=== PATIENT | male | born 1985 | race Caucasian/White ===

== ENCOUNTER 2017-01-23 01:43 | Emergency (ER) | payer MEDICAID ==
[2017-01-23 01:53] VITALS: BP 144/90
[2017-01-23] MEDS ORDERED: KETOROLAC TROMETHAMINE 60 MG/2 ML VIAL IM ONE (02:01)
--- NOTE | 2017-01-23 02:17 | ERNOTE ---
Back Pain ER HPI Presenting Symptoms: injury/pain to back Time Seen by Provider: 01/23/17 01:56 Source: patient Exam Limitations: no limitations Immunizations: IMMUNIZATION HX Immunizations Up to Date Yes Allergies/Adverse Reactions: Allergies No Known Allergies Allergy (Unverified 01/23/17 01:53) Home Medications: HOME MEDICATIONS NK [No Home Medication] 01/23/17 [Last Taken Unknown] Narrative: Pt states that he slipped off a concrete guard and landed on his back tonight, now has diffuse low to mid back pain. Timing: Reports: constant Quality/Severity: Reports: moderate, dullness Location of pain: Reports: mid back, lower back Activities at Onset: Reports: activity Recent Injury?: Reports: yes Possible Precipitating Factor: Reports: fall/near fall Associated Symptoms: Denies: numbess/weakness in legs Review of Systems - Review of Systems Constitutional: Present: no symptoms reported EYE: Present: no symptoms reported ENT: Present: no symptoms reported Respiratory: Present: no symptoms reported Cardiology: Present: no symptoms reported Gastrointestinal/Abdominal: Present: no symptoms reported Genitourinary: Present: no symptoms reported Musculoskeletal: Present: See HPI Skin: Present: other - abrasions Neurological: Present: no symptoms reported Endocrine: Present: no symptoms reported Hematologic/Lymphatic: Present: no symptoms reported Psych: Present: no symptoms reported - Patient's Past Medical History Patient History - Medical: Seizures Patient History - Cardiac/Respiratory: No pertinent hx Patient History - Cancer: No Hx of Cancer Patient History - Other: None - Social History Living Situations: home Psych History: No pertinent hx Smoking Status: Current every day smoker Patient requests Smoking Cessation Consult: No Initiate information on Smoking Cessation: No Alcohol Use: none Drug Use: none - Immunizations Immunizations Up to Date: Yes Physical Exam - Physical Exam General Appearance: Present: wd/wn, alert, anxious - continually moving Head Exam: Present: no tenderness w palpation. Absent: Zamora's Sign, raccoon eyes Eye Exam: Normal inspection: bilateral, PERRL: bilateral Ears, Nose, Throat: Present: other - abrasion on chin, good Neck: Present: normal inspection, supple Respiratory: Present: no respiratory distress, no accessory muscle use Back Exam: Present: normal range of motion, no vertebral tenderness, other - left paraspinal muscular tenderness from mid lumbar up to lower thoracic Extremity Exam: Present: normal range of motion Neurological Exam: Present: alert, oriented Skin Exam: Present: normal color, warm/dry ED Progress - Vital Signs Vital Signs: Vital Signs 01/23/17 01:49 Temperature 36.8 C Pulse Rate 112 H Respiratory 20 Rate Blood Pressure 144/90 O2 Sat by Pulse 96 Oximetry - Progress/Reassessment Chief Complaint: Back Pain Progress Note-Subjective: 01/23/17 02:12 While patient was waiting for ordered toradol the patient got up and walked out. I asked what was going on and he said "I'm all good doc, I don't want to wait anymore". Departure Clinical Impression: Low back pain Qualifiers: Chronicity: acute Back pain laterality: left Sciatica presence: without sciatica Qualified Code(s): M54.5 - Low back pain - Departure Disposition: Against medical advice Condition: Good
[2017-01-25] MEDS ORDERED: clonazePAM 0.5 MG TABLET ONE (14:09)
== END 2017-01-23 02:10 | disposition left against medical advice (07) ==
LOC: ER 01:43
DX: M54.5 Low back pain (principal); F17.200 Nicotine dependence, unspecified, uncomplicated; W13.8XXA Fall from, out of or through other building or structure, initial encounter; Z53.29 Procedure and treatment not carried out because of patient's decision for other reasons

== ENCOUNTER 2017-01-25 11:26 | Emergency (ER) | payer MEDICAID ==
[2017-01-25 12:18] LABS: Hematocrit 39.8 % (42.0-52.0); Hemoglobin 14.2 gm/dL (13.5-18.0); Mean Cell Volume 91.1 fl (78-100); Mean Corpuscular Hemoglobin 32.5 pg (27-31); Mean Corpuscular Hgb Conc 35.7 g/dl (32-36); Mean Platelet Volume 11.3 fl (6.0-9.5); Neutrophil # 2.8 K/mm3 (1.3-6.0); Platelet Count 181 K/mm3 (150-450); Red Blood Count 4.37 M/mm3 (4.7-6.0); Red Cell Distribution Width 13.2 % (11.5-14.0); White Blood Count 4.9 K/mm3 (4.0-10.5)
[2017-01-25 12:41] LABS: ALT 58 U/L (19-67); AST 58 U/L (0-48); Albumin * 3.5 gm/dl (3.4-5.0); Alkaline Phosphatase * 52 U/L (50-170); Anion Gap 12.9 mmol/L (6.8-13.8); BUN/Creatinine Ratio 16.7 (9.0-21.6); Blood Urea Nitrogen 14 mg/dL (6-23); Ca. Corrected For Albumin 8.5 mg/dL (8.4-10.2); Calcium * 8.4 mg/dL (7.9-10.9); Carbon Dioxide 27.7 mmol/L (24-32.6); Chloride 103 mmol/L (97-106); Glucose * 119 mg/dL (70-110); Magnesium 1.6 mg/dL (1.2-2.8); Potassium 3.6 mmol/L (3.4-4.6); Salicylate Less than 2.8 mg/dL (2.8-20.0); Sodium 140 mmol/L (132-142); TSH * 0.297 uIU/mL (0.358-3.74); Total Protein 6.6 gm/dL (6.2-8.2)
--- NOTE | 2017-01-25 13:20 | ERNOTE ---
Psychological HPI - General Chief Complaint: Psychiatric Problem Source: Reports: patient Exam Limitations: Reports: no limitations - Immun/Allergies/Home Medications Allergies/Adverse Reactions: Allergies No Known Allergies Allergy (Unverified 01/23/17 01:53) Home Medications: HOME MEDICATIONS Clonazepam 01/25/17 [Last Taken Unknown] Wellbutrin 01/25/17 [Last Taken Unknown] - History of Present Illness Narrative: Patient was discharged from the psychiatric department at [facility] in [place] several weeks ago, however he was not discharged with any of his psychiatric medications. Patient has started to notice escalating depression and suicidal ideations are getting worse. Patient states that they are at least moderate to severe at this juncture and he definitely feels suicidal. He denies having any significant plan at this point but is fearful for his well- being. Time Seen by Provider: 01/25/17 11:48 Arrived by: Reports: private car Onset/duration: Reports: gradual onset Intent: Reports: prior thoughts of suicide Associated Symptoms: Reports: depressed, frustrated, suicidal thoughts Prior Treament: Reports: recently seen, treated by physician, recently hospitalized, similar symptoms before Review of Systems - Review of Systems Constitutional: Present: See HPI EYE: Present: no symptoms reported ENT: Present: no symptoms reported Respiratory: Present: no symptoms reported Cardiology: Present: no symptoms reported Gastrointestinal/Abdominal: Present: no symptoms reported Genitourinary: Present: no symptoms reported Musculoskeletal: Present: no symptoms reported Skin: Present: no symptoms reported Neurological: Present: no symptoms reported Endocrine: Present: no symptoms reported Hematologic/Lymphatic: Present: no symptoms reported Psych: Present: See HPI, depressed, emotional problems - Patient's Past Medical History Patient History - Medical: Anxiety, Depression, Seizures Patient History - Cardiac/Respiratory: No pertinent hx Patient History - Cancer: No Hx of Cancer Patient History - Other: None - Social History Living Situations: home Abuse History: No History of abuse Psych History: Hx of Anxiety, Hx of Depression, Hx of Psychiatric Tx Smoking Status: Current every day smoker Have you smoked in the past 12 months: Yes Do you dip or chew tobacco: No Alcohol Use: none Drug Use: marijuana, meth - Immunizations Immunizations Up to Date: Yes Psychological Exam - Exam General Appearance: Present: wd/wn, alert, moderate distress - mostly depressed with suicidal ideation Head Exam: Present: normal inspection Neurological: Present: alert, depressed affect Thoughts/Hallucinations: Present: no apparent hallucination Behavior/Eye Contact/Speech: Present: cooperative, good eye contact, normal speech ENT Exam normal except (see below): Yes Eye Exam: Normal inspection: bilateral, PERRL: bilateral, EOMI: bilateral Ears, Nose, Throat: Present: normal ENT inspection Neck: Present: normal inspection, nontender Respiratory: Present: no respiratory distress, normal breath sounds Cardiovascular/Chest: Present: no murmur, bradycardia Gastrointestinal/Abdominal: Present: normal bowel sounds, nontender Rectal Exam: Present: deferred Male Genitals Exam: Present: deferred Back Exam: Present: normal inspection, normal range of motion Extremity Exam: Present: normal inspection Skin Exam: Present: normal color, warm/dry Lymphatic Exam: Present: no adenopathy ED Progress - Results and Orders Patient's Lab Results:: I have reviewed the patient's lab results. - Vital Signs Patient's Vital Signs:: I have reviewed the patient's vital signs. Vital Signs: Vital Signs 01/25/17 11:36 Temperature 36.2 C L Pulse Rate 52 L Respiratory 14 Rate Blood Pressure 120/74 O2 Sat by Pulse 99 Oximetry - EKG EKG: NSR, other - bradycardia - Progress/Reassessment Chief Complaint: Psychiatric Problem Plan - Plan Plan: The patient continues to state that he is suicidal and feels as though he needs some help. He has been off of his medications for some period of time and that coupled with some of the drug use may be compounding what was already known psychiatric condition. [facility] in [facility] has accepted the patient for inpatient treatment and resumption of his medications. Departure Clinical Impression: Suicidal ideation Depression Qualifiers: Depression Type: dysthymia Qualified Code(s): F34.1 - Dysthymic disorder - Departure Disposition: Home self-care Condition: Fair
[2017-01-25] MEDS ORDERED: clonazePAM 0.5 MG TABLET PO ONE (13:45)
[2017-01-25] MEDS ORDERED: buPROPion HCL 150 MG TAB.SR.24H PO ONE (13:45)
[2017-01-25 15:14] LABS: Cocaine Ur Negative (NEGATIVE); Urine Barbiturate Negative (NEGATIVE); Urine Benzodiazepines Negative (NEGATIVE); Urine Opiates Negative (NEGATIVE); Urine PCP Negative (NEGATIVE)
[2017-01-25 15:15] LABS: Urine THC Positive (NEGATIVE)
[2017-01-25 15:16] LABS: Urine Appearance Clear; Urine Bilirubin Negative (NEGATIVE); Urine Blood Negative /ul (NEGATIVE); Urine Color Yellow; Urine Ketone 15 mg/dL (NEGATIVE)
[2017-01-25 15:17] LABS: Urine Bacteria None Seen; Urine Nitrite Negative (NEGATIVE); Urine Protein Negative (NEGATIVE); Urine RBC None Seen /hpf (0-5); Urine Urobilinogen Normal (NORMAL); Urine WBC None Seen /hpf (0-5)
[2017-01-25 20:20] VITALS: BP 130/97
== END 2017-01-25 20:20 | disposition short-term general hospital (02) ==
LOC: ER 11:26
DX: R45.851 Suicidal ideations (principal); F34.1 Dysthymic disorder; F17.200 Nicotine dependence, unspecified, uncomplicated
CPT/HCPCS: 36415; 80053; 80307; 81001; 83735; 84443; 85025; 93005; 99285; G0480; G0481